=== PATIENT | male | born 1980 ===

== ENCOUNTER 2018-09-13 19:06 | Emergency (ER) | payer OTHER ==
--- NOTE | 2018-09-13 19:47 | Emergency Department Report ---
Blank Doc - Documentation Documentation: This is a 38-year-old male that presents with right testicular pain. This initial assessment/diagnostic orders/clinical plan/treatment(s) is/are subject to change based on patient's health status, clinical progression and re- assessment by fellow clinical providers in the ED. Further treatment and workup at subsequent clinical providers discretion. Patient/guardians urged not to elope from the ED as their condition may be serious if not clinically assessed and managed. Initial orders include: 1- Patient sent to [facility] for further evaluation and treatment 2- Stat US ordered and called US tech to get this exam stat. 3- UA
[2018-09-13 19:48] VITALS: BP 120/77
--- NOTE | 2018-09-13 20:53 | Ultrasound Report ---
PROCEDURE: US TESTICULAR DOPPLER COMP TECHNIQUE: Real-time russell-scale and color flow Doppler sonography in multiple planes of the scrotum, testicles, and epididymes was performed. Velocity spectral waveform analysis and color Doppler imagi ng of the arterial inflow and venous outflow of the testicles was performed with image documentation. HISTORY: right testicular pain COMPARISONS: None . FINDINGS: RIGHT TESTICLE: Size: 4.2 x 2.1 x 3.2 cm . Appearance: Normal size and echotexture . Arterial blood flow: Normal spectral waveforms, flow velocities and color flow images.. Venous blood flow: Normal spectral waveforms and color flow images. Right epididymis: Normal size and echotexture . Hydrocele: None . LEFT TESTICLE Size: 3.3 x 2.0 x 2.8 cm . Appearance: Normal size and echotexture . Arterial blood flow: Normal spectral waveforms, flow velocities and color flow images.. Venous blood flow: Normal spectral waveforms and color flow images. Left epididymis: Normal size and echotexture . Hydrocele: None . IMPRESSION: Normal Examination . This document is electronically signed by Pritesh Prabhakar MD., September 13 2018 08:51:40 PM ET
[2018-09-13 20:54] LABS: Bilirubin,Urine NEG (Negative); Blood,Urine NEG (Negative); Color,Urine Yellow (Yellow); Mucus,Urine FEW /HPF; Protein,Urine <15 mg/dL mg/dL (Negative); WBC,Urine < 1.0 /HPF (0.0-6.0)
--- NOTE | 2018-09-13 23:29 | Emergency Department Report ---
ED Male HPI - General Chief complaint: Urogenital-Male Stated complaint: PAIN FROM RT GROIN TO FEET Time Seen by Provider: 09/13/18 19:46 Source: patient Mode of arrival: Ambulatory Limitations: No Limitations - History of Present Illness Initial comments: 38 year old -[place] male comes in complaining of pain to the right groin that radiates down to the foot. Patient denies any injury or past medical history. Patient denies any penile discharge but does admit to dysuria. Patient reports that the pain is worse at night when he lays down. Patient reports that the pain is intermittent sharp and causes numbness to his leg. Patient reports that his testicles feel heavy. Patient reports she is sexually active with both male and female unprotected and protected. Patient has not taken anything for pain. Patient denies any nausea vomiting no fever no chills. Patient reports a history of gonorrhea in the past. Patient denies any past medical history currently takes no medications on a daily basis and has a penicillin allergy. MD Complaint: testicle pain, dysuria, groin pain -: days(s) (4) Location: right testicle Radiation: other (right lower leg to foot) Severity: severe Severity scale (0 -10): 8 Quality: sharp, other (numbness) Improves with: none Worsens with: palpation, other (lying down after being at work all day) - Related Data Previous Rx's Medication Instructions Recorded Last Taken Type Azithromycin [Zithromax Z-JOHNNY] 250 mg PO ONCE #4 tablet 09/14/18 Unknown Rx Ibuprofen [Motrin 600 MG tab] 600 mg PO Q8H #15 tablet 09/14/18 Unknown Rx Allergies Allergy/AdvReac Type Severity Reaction Status Date / Time Penicillins Allergy Hives Verified 09/13/18 19:13 ED Review of Systems ROS: Stated complaint: PAIN FROM RT GROIN TO FEET Other details as noted in HPI ED Past Medical Hx - Past Medical History Previous Medical History?: No - Surgical History Past Surgical History?: No - Social History Smoking Status: Never Smoker - Medications Home Medications: Home Medications Medication Instructions Recorded Confirmed Last Taken Type Azithromycin [Zithromax Z-JOHNNY] 250 mg PO ONCE #4 tablet 09/14/18 Unknown Rx Ibuprofen [Motrin 600 MG tab] 600 mg PO Q8H #15 tablet 09/14/18 Unknown Rx ED Physical Exam - General Limitations: No Limitations General appearance: alert, in no apparent distress - Head Head exam: Present: atraumatic, normocephalic - Eye Eye exam: Present: EOMI - ENT ENT exam: Present: normal exam, mucous membranes moist - Neck Neck exam: Present: normal inspection, full ROM - GI/Abdominal GI/Abdominal exam: Present: soft. Absent: distended, tenderness - exam: Present: testicular tenderness (right), circumcision. Absent: scrotal swelling External exam: Present: normal external exam, other (right groin lymphadenopathy with tenderness). Absent: erythema, swelling - Extremities Exam Extremities exam: Present: normal inspection, full ROM - Neurological Exam Neurological exam: Present: alert, oriented X3 - Psychiatric Psychiatric exam: Present: normal affect, normal mood - Skin Skin exam: Present: warm, dry, intact, normal color. Absent: rash ED Course Vital Signs 09/13/18 09/13/18 19:33 19:46 Temperature 98.7 F 99.1 F Pulse Rate 70 68 Respiratory 18 18 Rate Blood Pressure 120/77 120/77 O2 Sat by Pulse 99 99 Oximetry ED Medical Decision Making - Radiology Data Radiology results: report reviewed Patient: SCOTT DIAZ MR#: [id number] : 1980 Acct:[id number] Age/Sex: 38 / M ADM Date: 09/13/18 Loc: ED Attending Dr: Ordering Physician: RONALD YUEN NP Date of Service: 09/13/18 Procedure(s): US testicular doppler comp Accession Number(s): [id number] cc: RONALD YUEN NP PROCEDURE: US TESTICULAR DOPPLER COMP TECHNIQUE: Real-time russell-scale and color flow Doppler sonography in multiple planes of the scrotum, testicles, and epididymes was performed. Velocity spectral waveform analysis and color Doppler imaging of the arterial inflow and venous outflow of the testicles was performed with image documentation. HISTORY: right testicular pain COMPARISONS: None . FINDINGS: RIGHT TESTICLE: Size: 4.2 x 2.1 x 3.2 cm . Appearance: Normal size and echotexture . Arterial blood flow: Normal spectral waveforms, flow velocities and color flow images.. Venous blood flow: Normal spectral waveforms and color flow images. Right epididymis: Normal size and echotexture . Hydrocele: None . LEFT TESTICLE Size: 3.3 x 2.0 x 2.8 cm . Appearance: Normal size and echotexture . Arterial blood flow: Normal spectral waveforms, flow velocities and color flow images.. Venous blood flow: Normal spectral waveforms and color flow images. Left epididymis: Normal size and echotexture . Hydrocele: None . IMPRESSION: Normal Examination . This document is electronically signed by Rudolph Prabhakar MD., September 13 2018 08:51:40 PM ET Transcribed By: [facility] [place]ictated By: RUDOLPH PRABHAKAR Electronically Authenticated By: RUDOLPH PRABHAKAR Signed Date/Time: 09/13/182052 DD/ 38 TD/TT: 09/13/182038 - Medical Decision Making Patient has been evaluated by this provider and [facility]. Ultrasounds negative Urinalysis negative Discussed with Dr. Christensen agrees with plan. Patient had opportunity to ask questions patient verbalized understanding. Critical care attestation.: If time is entered above; I have spent that time in minutes in the direct care of this critically ill patient, excluding procedure time. ED Disposition Clinical Impression: Dysuria Groin pain Qualifiers: Laterality: right Qualified Code(s): R10.31 - Right lower quadrant pain Disposition: DC-01 TO HOME OR SELFCARE Is pt being admited?: No Does the pt Need Aspirin: No Condition: Stable Instructions: Dysuria (ED) Additional Instructions: Plate antibiotics as prescribed. Pain medication as needed. Please bring your ID to medical records here at the hospital to obtain her culture results. Prescriptions: Ibuprofen [Motrin 600 MG tab] 600 mg PO Q8H #15 tablet Azithromycin [Zithromax Z-JOHNNY] 250 mg PO ONCE #4 tablet Referrals: MILTON MORFIN MD [Primary Care Provider] - 3-5 Days
[2018-09-13] MEDS ORDERED: IBUPROFEN PO ONE (23:46)
[2018-09-14] MEDS ORDERED: GENTAMICIN IM ONE
== END 2018-09-14 00:20 | disposition home or self-care (01) ==
LOC: ED 19:06
DX: R30.0 Dysuria (principal); R10.31 Right lower quadrant pain; Z88.0 Allergy status to penicillin
CPT/HCPCS: 81001; 87591; 93975; 96372; 99284; J1580